=== PATIENT | male | born 1995 | race Caucasian/White ===

== ENCOUNTER → 2016-07-03 | Outpatient (CLI) | payer OTHER ==
[2016-07-03 13:37] LABS: HEMOGLOBIN 14.2 gm/dl (14.0-17.5); RED BLOOD COUNT 4.84 M/UL (4.20-5.50); WHITE BLOOD COUNT 7.3 K/UL (4.5-11.0)
[2016-07-03 14:01] LABS: BUN/CREATININE RATIO 11 (0-10)
== END ==
LOC: LAB 12:52
PROVIDERS: Family Medicine
DX: F41.9 Anxiety disorder, unspecified (principal); G40.909 Epilepsy, unspecified, not intractable, without status epilepticus; R07.9 Chest pain, unspecified
CPT/HCPCS: 36415; 71020; 80053; 84443; 85025

== ENCOUNTER → 2020-09-09 | Outpatient (CLI) | payer OTHER ==
[~2020-09-09] MED LIST: VALACYCLOVIR PO
== END ==
LOC: KOH-I 12:15
DX: S83.241A Other tear of medial meniscus, current injury, right knee, initial encounter (principal); S83.511A Sprain of anterior cruciate ligament of right knee, initial encounter
CPT/HCPCS: 73721

== ENCOUNTER → 2020-09-27 | Day surgery (SDC) | payer OTHER ==
[~2020-09-27] VITALS: Ht 182.9 cm; Wt 68.9 kg
[~2020-09-27] MED LIST changes: +BACTROBAN OINT22 GM TOP; +CLEOCIN HCL150 MG PO
== END | disposition home or self-care (01) ==
LOC: OR 06:31
DX: S83.511A Sprain of anterior cruciate ligament of right knee, initial encounter (principal); S83.241A Other tear of medial meniscus, current injury, right knee, initial encounter; S83.281A Other tear of lateral meniscus, current injury, right knee, initial encounter; V00.131A Fall from skateboard, initial encounter; Z20.822 Contact with and (suspected) exposure to COVID-19; K21.9 Gastro-esophageal reflux disease without esophagitis; F31.9 Bipolar disorder, unspecified; F43.10 Post-traumatic stress disorder, unspecified; Z88.0 Allergy status to penicillin; Z88.1 Allergy status to other antibiotic agents
CPT/HCPCS: C1713; J0171; J0592; J1100; J2001; J2250; J2405; J2704; J2765; J2795; J3010; J7120

== ENCOUNTER 2020-11-07 22:11 | Emergency (ER) | payer OTHER ==
[~2020-11-07 22:11] MED LIST changes: -BACTROBAN OINT22 GM TOP; -CLEOCIN HCL150 MG PO
[2020-11-07] MEDS ORDERED: BACTROBAN OINT22 GM TOP (22:27)
[2020-11-07] MEDS ORDERED: CLEOCIN HCL150 MG PO (22:27)
== END 2020-11-07 22:35 | disposition home or self-care (01) ==
LOC: ER1 22:11
DX: R21 Rash and other nonspecific skin eruption (principal); F17.290 Nicotine dependence, other tobacco product, uncomplicated; Z88.0 Allergy status to penicillin
CPT/HCPCS: 99282